=== PATIENT | female | born 1975 | race Caucasian/White ===

== ENCOUNTER → 2021-09-25 | Outpatient (CLI) | payer OTHER ==
[~2021-09-25] MED LIST: ACET500T68 PO; FLUO20CA22 PO; LEVO175T5 PO; METH-562 PO; TRAM50TA PO; TRAZ-118 PO
[2021-09-25 09:19] LABS: BASO % 1 % (0-3); EOS # 0.4 x10^3/uL (0.0-0.7); EOS % 6 % (0-3); HEMATOCRIT 36.4 % (36.0-47.0); HEMOGLOBIN 12.4 g/dL (12.0-15.5); LYMPH # 1.5 x10^3/uL (1.0-4.8); LYMPH % 21 % (24-48); MEAN CORPUSCULAR HEMOGLOBIN 31 pg (25-35); MEAN CORPUSCULAR HGB CONC 34 g/dL (31-37); MEAN CORPUSCULAR VOLUME 92 fL (79-100); MONO # 0.4 x10^3/uL (0.0-1.1); MONO % 6 % (0-9); NEUT # 4.8 x10^3/uL (1.8-7.7); NEUT % 68 % (31-73); PLATELET COUNT 226 x10^3/uL (140-400); RED BLOOD COUNT 3.96 x10^6/uL (3.50-5.40); RED CELL DISTRIBUTION WIDTH 13.1 % (11.5-14.5); WHITE BLOOD COUNT 7.2 x10^3/uL (4.0-11.0)
[2021-09-25 09:34] LABS: ALBUMIN 3.3 g/dL (3.4-5.0); CALCIUM 8.9 mg/dL (8.5-10.1); CREATININE 0.9 mg/dL (0.6-1.0); GFR 66.8; POTASSIUM 4.1 mmol/L (3.5-5.1)
[2021-09-25 09:39] LABS: PROTHROMBIN TIME PATIENT 13.2 SEC (11.7-14.0)
[2021-09-26 01:11] LABS: HEMOGLOBIN A1C 5.7 % (4.8-5.6)
--- NOTE | 2021-09-26 07:45 | EKG ---
[facility] [address] [place] [id number] Test Date: 2021-09-25 Test Time: 12:07:00 Pat Name: FELIZ ENRIQUEZ Department: Room: Gender: F Health Support Specialist: AMANUEL : 1975 Requested By: BRIDGET FLANAGAN Order Number: [id number] Reading MD: Tuan Daley Measurements Intervals [place] Rate: 67 P: 51 AK: 160 QRS: 50 QRSD: 90 T: 67 QT: 392 QTc: 417 Interpretive Statements SINUS RHYTHM NO SPECIFIC ECG ABNORMALITIES Electronically Signed On 09-26-2021 9:32:07 CDT by Tuan Daley
--- NOTE | 2021-09-26 07:47 | RAD ---
XR CHEST 2V INDICATION: joint prehab patient-preop eval-hx tobacco abuse-left hip surgery, october 10 COMPARISON STUDY: None. FINDINGS: Lungs: Normal lung volume. No pulmonary mass or consolidation. The tracheobronchial tree and hilar st ructures are normal. Pleura: No pleural effusion or pneumothorax. Heart and Mediastinum: The cardiomediastinal silhouette is normal. The great vessels of the thorax ar e normal. Bones and Soft Tissues: The bones and soft tissues are within normal limits. IMPRESSION: No acute cardiopulmonary process. Electronically signed by: Leo Saenz MD (09/25/2021 1:56 PM) [id number]
== END ==
LOC: SURGPAT 13:23
PROVIDERS: ATTEND Orthopaedic Surgery Sports Medicine
DX: Z01.818 Encounter for other preprocedural examination (principal); M16.12 Unilateral primary osteoarthritis, left hip
CPT/HCPCS: 36415; 71046; 80048; 82040; 82306; 83036; 85025; 85610; 85651; 85730; 87641; 93005

== ENCOUNTER → 2021-10-06 | Outpatient (CLI) | payer OTHER ==
[~2021-10-06] MED LIST changes: +MORPHINE SULFATE 5 MG, KETOROLAC 30MG VIAL 30 MG, ROPIVacaine 0.5% PF 60 ML, EPINEPHrin... INT ART ONE
== END ==
LOC: LAB 09:52
PROVIDERS: ATTEND Orthopaedic Surgery Sports Medicine
DX: Z01.812 Encounter for preprocedural laboratory examination (principal); Z20.822 Contact with and (suspected) exposure to COVID-19
CPT/HCPCS: U0003